=== PATIENT | female | born 1965 | race Caucasian/White ===

== ENCOUNTER 2025-06-01 15:42 | Outpatient (AMB) | payer BC, SELFPAY ==
--- NOTE | 2025-06-01 16:04 | A.OFFVIS_ITS ---
Intake Visit Reasons: 6m Allergies erythromycin base (ERYTHROMYCIN BASE) Allergy (Unknown, Unverified 04/21/20 16:19) ANAPHYLAXIS Penicillins Allergy (Unknown, Verified 05/28/25 11:56) Unknown SEASONAL ALLERGIES Allergy (Unknown, Uncoded 04/21/20 16:19) UNKNOWN Medication List - Last Reconciled 06/01/25 by Pooja Palacios MD cholecalciferol (vitamin D3) 125 mcg PO DAILY fluoxetine 40 mg PO DAILY levetiracetam 1,500 mg (2 x 750 mg) PO Q12H 90 days magnesium glycinate 200 mg PO DAILY pantoprazole 40 mg PO ONCE trazodone 150 mg PO BEDTIME vitamin B complex 1 tab PO DAILY HPI Comments Details: 59 yr woman with Sz disorder. No Sz recurrence. She has??had 5 generalized sezures on 10/02/23 and another sz on 10/18/23 and was admitted to [facility] both times. She was put on Keppra Er 750 2 hs that was increased to 3 tabs qd after the second episode. Since then she has had 6 partial Sz where she smells burning and goes blank and stares for a minute or so, the last one 06/11/24. She has had a constant headache since September that fluctuates in intensity. These are different than her migraines she used to have with tunnle heraing and photophobia. Current FANG is a steady over the top of her head and left parietal area, and fang ssome light sensitivity. She first developed symptoms in 2000 with trouble with her balance. She saw and had an MRI of the brain that showed minor nonspecific white matter T2 hyperintensities in both frontal lobes (a total of 12 lesions). She had 2 falls downstairs in July of 2012 in October of 2012. She says she walks into doorways. Her memory is a bit worse. f/u MRI in 2012 showed a significant worsening with an additional 12 lesions again in the deep white matter and subcortical areas of both the frontal and to some degree temporal regions and parietal areas without any significant periventricular or corpus callosum involvement. No lesions are seen in the posterior fossa in the cerebellum looks normal. Neuropsych testing 05/28/13 did not show any cognitive abnormalities for age and education. 2019 she had a stroke speech and right hemiparesis treated with tpA and then in rehab. Has some right leg weakness at times . [facility] Medical History (Updated 06/01/25 @ 16:06 by Pooja Palacios MD) Stroke Alcohol dependence GERD (gastroesophageal reflux disease) Bipolar 1 disorder Surgical History (Updated 05/28/25 @ 11:59 by JEMIMA Collier) Hx of hysterectomy Review of Systems Const Details: Sleep:? Difficulty getting to sleepdenies.? Difficulty maintaining sleepadmits.? Urge to move legsdenies.? Teeth grindingdenies.? Shouting or Kicking during sleep denies.? Abnormal behavior during sleepdenies.? Excessive sleepdenies.? Snoring denies.? Daytime sleepinessdenies. ???General/Constitutional:? Change in appetitedenies.? Chillsdenies.? Fatiguedenies.? Feverdenies.? Weight gaindenies.? Weight lossdenies. ???Ophthalmologic:? Blurred visionadmits.? Diminished visual acuitydenies. ???ENT:? Stuffinessdenies.? Decreased hearingdenies.? Dry mouthdenies.? Ear paindenies.? Nosebleeddenies.? Ringing in the earsdenies.? Sinus paindenies.? Sore throat denies.? Swollen glandsdenies. ???Endocrine:? Cold intolerancedenies.? Excessive thirstdenies.? Frequent urinationdenies.? Heat intolerancedenies. ???Respiratory:? Shortness of breathdenies.? Chest paindenies.? Coughadmits. ???Breast:? Breast lumpdenies.? Nipple dischargedenies. ???Cardiovascular:? Chest pain at restdenies.? Chest pain with exertiondenies.? Claudicationdenies .? Dizzinessdenies.? Fluid accumulation in the legsdenies.? Irregular heartbeat denies.? Palpitationsdenies. ???Gastrointestinal:? Abdominal paindenies.? Constipationdenies.? Diarrheadenies.? Difficulty swallowingdenies.? Heartburndenies.? Nauseadenies.? Rectal bleedingdenies. ???Hematology:? Easy bruisingdenies.? Prolonged bleedingdenies. ???Genitourinary:? Frequent urinationdenies.? Urgencydenies.? Incontinencedenies.? Erectile Dysfunctiondenies. ???Musculoskeletal:? Neck painadmits.? Back painadmits.? Muscle achesadmits.? Painful jointsdenies.? Sciaticadenies.? Weaknessdenies. ???Podiatric:? Difficulty walkingdenies.? Foot numbnessdenies. ???Neurologic:? Difficulty swallowingdenies.? Balance difficultyadmits.? Coordinationnormal.? Difficulty speakingdenies.? Dizzinessdenies.? Faintingdenies.? Gait abnormality denies.? Headacheadmits.? Loss of strengthdenies.? Loss of use of extremity denies.? Low back paindenies.? Memory lossadmits.? Seizuresadmits.? Ticsdenies.? Tingling/Numbnessadmits.? Transient loss of visiondenies.? Tremoradmits. ???Psychiatric:? Anxietyadmits.? Auditory/visual hallucinationsdenies.? Delusionsagitation nad aggression.? Depressed moodadmits.? Stressorsdenies.? Substance abuseadmits.? Suicidal thoughtsdenies. Physical Exam Neuro Other: Neurological: Abnormal neurological findings:??none.?Mental Status:??alert and oriented X 3,?Normal attention, orientation, memory and affect.?Cranial Nerves:??Pupils are equal, round and reactive to light. Fundoscopy shows normal disc bilaterally. External occular muscles are intact. Visual sesay are full, no ptosis. Face is symmetrical, no facial weakness or droop. Facial sensations are normal. Tongue protrudes in midline. Palate elevates symmetrically. Shoulder shrugging is normal..?Motor Examination:??Normal muscle tone, bulk and strength,?No atrophy or fasciculations,?No drift of the extended upper extremities,?Deep tendon reflexes are 2+?,?Plantars are flexor?.?Motor Strength:?Proximal Muscles (out of 5):5Distal Muscles (out of 5):5Neck Flexors (out of 5):5Neck Extensors (out of 5):5Deltoid (out of 5):5Biceps (out of 5):5Triceps (out of 5):5Serratus Anterior (out of 5):5Wrist Extensors (out of 5):5APB (out of 5):5Finger Spread (out of 5) :5Ileopsoas (out of 5):5Quadriceps (out of 5):5Hamstrings (out of 5):5Tibialis Anterior (out of 5):5Peronei (out of 5):5EDB (out of 5):5Gastrocnemius (out of 5):5Straight Leg Raising:??90 degrees.?Sensory Exam:??Normal light touch, temperature, pinprick, vibration and joint-position sensations?,?Rhomberg sign is absent.?Coordination:??no ataxia,?no titubation,?elqjbx-sz-[id number], svde-fbii-tqqk test and rapid alternating movements were normal.?Gait Exam:??Within normal limits.?Cerebellar Signs:??Fbyjul-au-ymfw and vfba-yb-tgfq is normal,?no dysdiadochokinesia?.?Extrapyramidal System:??No tremor, rigidity with normal facial expressions,?No bradykinesia, no bradyphrenia. Normal arm swing and posture. No propulsion or retropulsion.?Speech:??Normal,?no dysphasia or dysarthria..? Mini Mental Status Exam: Level of Consciousness:??Alert.?Orientation:??Knows correct year, month, date, day and season,?Knows correct city, county and state. Knows correct location and floor.?Registration:??Able to register 3 objects.?Attention:??Serial 7's performed accurately.?Recall:??Able to recall 3 out of 3 objects.?Language:??Normal spontaneous speech, fluency, repetition,naming, comprehension, reading and writing.?Total Score:??30/30.? Assessment & Plan Assessment & Plan (1) Seizure disorder: Code(s): G40.909 - Epilepsy, unspecified, not intractable, without status epilepticus Category: Medical (2) Stroke: Code(s): I63.9 - Cerebral infarction, unspecified Category: Medical Plan continue current meds Medications: New levetiracetam 1,500 mg (2 x 750 mg) PO Q12H 360 tabs 3RF 90 days Coding Level of Care Code Est Pt Level 4 (33402) Diagnoses Seizure disorder G40.909 Stroke I63.9
--- OUTSIDE RECORDS SUMMARY | 2025-06-01 19:59 | XMS_ITS | Clinical Summary ---
Author Organization [facility] Address [address] [place] [address] Care Team Providers [employer] Person Name Role Phone Tawanna Brandon PA-C Primary Care Provider [phone] Source Comments PLEASE NOTE, if this patient is a minor, it may be UNLAWFUL to discuss sensitive information that is contained in these records (such as FAMILY PLANNING, MENTAL HEALTH or SUBSTANCE ABUSE) with the minor patient's parent or other person without the patient's specific authorization.[facility] Allergies Active Allergy Reactions Criticality Noted Date Comments Erythromycin Anaphylaxis 03/02/2015 Penicillins Nausea and Vomiting 03/02/2015 Medications ALPRAZolam (XANAX) 0.5 mg tablet 2 5 Active gabapentin (NEURONTIN) 600 mg tablet 2 5 Active traZODone (DESYREL) 150 mg tablet 2 5 Active BLACK COHOSH ORAL Take by mouth. Active naproxen sodium (ANAPROX) 220 mg tabletIndications :migraine Take 220 mg by mouth 2 (two) times daily with a meal. Indications: Migraine Active Diphenhydramine-A cetaminophen (EXCEDRIN PM) 38-500 mg tabIndications:he adache disorder Take by mouth as needed. Indications: Headache Disorder Active cetirizine (ZYRTEC) 10 mg tabletIndications :seasonal allergic rhinitis Take 10 mg by mouth once daily. Indications: Seasonal Allergic Rhinitis Active FLUoxetine (PROZAC) 10 mg capsuleIndication s:Bipolar 1 disorder Take 1 Cap by mouth once daily. 30 Cap 3 5 Active EPINEPHrine (EPIPEN) 0.3 mg/0.3 mL (1:1,000) injectionIndicati ons:anaphylaxis Inject 0.3 mL into the muscle as needed for anaphylaxis. Indications: Anaphylaxis 1 Each 1 5 Active omeprazole (PRILOSEC) [address] capsuleIndication s:Gastroesophagea l reflux disease without esophagitis Take 1 Cap by mouth every morning before breakfast. 30 Cap 3 5 Active nicotine (NICODERM CQ) 21 mg/24 hr patchIndications: Encounter for smoking cessation counseling Place 1 Patch onto the skin once daily (every 24 hours). 42 Patch 0 5 Active nicotine (NICODERM CQ) 14 mg/24 hr patchIndications: Encounter for smoking cessation counseling Place 1 Patch onto the skin once daily (every 24 hours). 14 Patch 0 5 Active nicotine (NICODERM CQ) 7 mg/24 hr patchIndications: Encounter for smoking cessation counseling Place 1 Patch onto the skin once daily (every 24 hours). 14 Patch 0 5 Active doxycycline (MONODOX) 100 mg capsuleIndication s:Rhinosinusitis Take 1 Cap by mouth 2 (two) times daily. 10 Cap 0 5 Active COMP.STOCKING,THI GH,REG,LARGE (COMPRESSION STOCKING)Indicati ons:Varicose veins of legs Dx: bilat varicose vains and venous insuf. Use dueting day, remove at night. Thigh high. Pressure 20-30mmhg 2 Each 2 5 Active fluticasone-salme terol (ADVAIR DISKUS) 500-50 mcg/dose diskus inhalerIndication s:Asthma, moderate persistent, uncomplicated Inhale 1 Puff into the lungs 2 (two) times daily. 1 Inhaler 6 5 Active albuterol sulfate 90 mcg/actuation aepbIndications:a cute asthma attack Inhale 90 mcg into the lungs every 6 (six) hours as needed (sob, wheezing). Indications: Acute Asthma Attack 1 Inhaler 6 5 Active naproxen (EC NAPROSYN) 500 mg EC tabletIndications :Chronic RUQ pain Take 1 Tab by mouth 2 (two) times daily with a meal. Swallow whole. Do not crush or chew. 60 Tab 2 6 Active Active Problems Problem Noted Date Diagnosed Date ETOH abuse 07/22/2015 Ovarian cyst. right ovary, seen ct at [facility] 9.28 .15 05/23/2015 IBS (irritable bowel syndrome) 03/31/2015 Varicose veins of legs 03/31/2015 Hot flashes, menopausal 03/02/2015 GERD (gastroesophageal reflux disease) 5 Neck arthritis 03/02/2015 Wrist arthritis 03/02/2015 Asthma, moderate persistent 03/02/2015 Bipolar 1 disorder 03/02/2015 Overview (04/15/2015): Seen psych at [facility] and counseling Gets meds from them Anaphylactic reaction 03/02/2015 Overview (03/02/2015): To medication allergies Seasonal allergies 03/02/2015 Migraine without aura and wi thout status migrainosus, not intractable 03/02/2015 Anxiety 03/02/2015 Gall bladder stones 03/02/2015 Immunizations Immunization Administration Dates Next Due INFLUENZA, SEASONAL, INJECTABLE 04/15/2015 Family History Medical History Relation Name Comments High Cholesterol Brother Hypertension Brother High Cholesterol Father Hypertension Father Cancer Maternal Grandmother Diabetes Maternal Grandmother Glaucoma Maternal Grandmother Asthma Mother COPD Mother Cancer Mother Diabetes Mother Relation Name Status Comments Brother Father Maternal Grandmother Mother Social History Tobacco Use Types Packs/Day Years Used Date Smoking Tobacco: Every Day Cigarettes 1 30 Smokeless Tobacco: Former Quit: 04/09/2015 Tobacco Cessation:Ready to Q uit: Yes Alcohol Use Standard Drinks/Week Comments Yes 8 (1 standard drink = 0.6 oz pur e alcohol) Social Connections Answer Date Recorded Social Connections and Isolation 0 03/29/2019 Financial Resource Strain Answer Date R ecorded Financial Resource Strain 0 2018 Stress Answer Date Recorded Stress 0 03/29/2019 Physical Activity Answer Date Recorded Physical Activity 0 03/29/2019 Food Insecurity Answer Date Recorded Food 0 03/29/2019 Transportation Needs Answer Date Record ed Transportation 0 03/29/2019 Housing Stability Answer Date Recorded Housing 0 03/29/2019 Safety and Environment Answer Date Hakan rded Safety 0 03/29/2019 Utilities Answer Date Recorded Utilities 0 03/29/2019 Employment Answer Date Recorded Employment 0 03/29/2019 Comments No Sex and Gender Information Value Date Recorded Sex Assigned at Not on file Legal Sex Female 8:58 AM PDT Gender Identity Not on file Sexual Orientation Not on file Last Filed Vital Signs Vital Sign Reading Time Taken Comments Blood Pressure 116/76 05/04/2015 1:56 PM EDT Pulse 96 05/04/2015 1:56 PM EDT Temperature 36.8 C (98.3 F) 05/04/2015 1:56 PM EDT Respiratory Rate 20 05/04/2015 1:56 PM EDT Oxygen Saturation - - Inhaled Oxygen Concentration - - Weight 61.2 kg (135 lb) 04/15/2015 4:15 PM EDT Height 156.2 cm (5' 1.5 ) 04/15/2015 4:15 PM EDT Body Mass Index 25.09 04/15/2015 4:15 PM EDT Plan of Treatment Not on file Insurance [employer] Care Teams [employer] Person Relationship Specialty Start Date End Date Tawanna Brandon PA-C [address] [place] [address] PCP - General 09/30/18
== END 2025-06-01 16:15 | disposition home or self-care (01) ==
LOC: HO.HSM 15:43
PROVIDERS: PCP Internal Medicine; Referring Provider Internal Medicine; Visit Provider Psychiatry & Neurology Neurology
DX: G40.909 Epilepsy, unspecified, not intractable, without status epilepticus (principal); I63.9 Cerebral infarction, unspecified
CPT/HCPCS: 99214